=== PATIENT | female | born 1975 | race Caucasian/White ===

== ENCOUNTER 2020-03-20 21:55 | Observation (INO) ==
[2020-03-20] MEDS ORDERED: SODIUM CHLORIDE 0.9% 1,000 ML IV STA (22:18)
[2020-03-20] MEDS ORDERED: ONDANSETRON 4 MG/2 ML VIAL IV ONE (22:38)
[2020-03-20] MEDS ORDERED: MORPHINE 4 MG/1 ML VIAL IV STA (22:38)
[2020-03-20 22:41] LABS: Basophils % 0.3 % (0.0-0.8); Eosinophils # 0.1 10*3/uL (0.0-0.87); Eosinophils % 0.5 % (0.00-10.9); Hematocrit 43.1 VOL% (35.7-47.0); Immature Granulocytes % 0.6 %; Immature Granulocytes Absolute 0.06 #; Lymphocytes # 0.8 10*3/uL (1.4-4.0); Lymphocytes % 8.6 % (21.3-54.2); Mean Corpuscular HGB Conc 32.5 GM/DL (32-36); Mean Corpuscular Volume 92.7 FL (87-102); Monocytes % 2.9 % (1.7-12.7); Neutrophils % 87.1 % (38.7-73.9); Platelet Count 174 T/CUMM (130-400); Red Blood Count 4.65 MC/CUMM (3.8-5.5); Red Cell Distribution Width 12.3 % (9.3-17.3); White Blood Count 9.6 T/CUMM (4-12)
[2020-03-20 22:59] LABS: ABG Base Excess -4.5 MMOL/L (-2.5-2.5); ABG HCO3 20.7 MMOL/L (20-26); ABG Oxygen Saturation 96.9 % (95-100); ABG PCO2 28.4 MM HG (35-48); ABG PH 7.424 (7.35-7.45); ABG PO2 81.3 MM HG (80-95); ABG TCO2 16.2 MMOL/L (23-27)
[2020-03-20 23:02] LABS: Albumin 3.1 G/DL (3.4-5.0); Bilirubin,Total 0.6 MG/DL (0.2-1.0); Calcium 8.3 MG/DL (8.5-10.1); Osmolality,Calculated 289.8 MOS/KG (273-304); Total Protein 7.5 G/DL (6.4-8.3)
[2020-03-20 23:10] LABS: Bacteria,Urine Few /HPF (Few); Bilirubin,Urine Negative (Negative); Blood, Urine Small mg/dL (Negative); Glucose,Urine (UA) >=500 mg/dL (Negative); Ketones,Urine Negative (Negative); Nitrite,Urine Positive (Negative); Protein,Urine Negative; RBC,Urine 1 /HPF (0-4); Squamous Epithelial Cell,Urine Occasional /HPF (0-10); Urine Appearance Slightly Hazy (Clear); Urine Color Yellow (Yellow); Urine Specific Gravity 1.025 (1.001-1.035); Urine Urobilinogen < 2.0 EU/DL (0.2-1.0); WBC,Urine 8 /HPF (0-6)
[2020-03-21] MEDS ORDERED: MORPHINE 4 MG/1 ML VIAL IV PRN (00:43)
[2020-03-21] MEDS ORDERED: DEXTROSE 50% 25 GM/50 ML VIAL IV PRN (00:43)
[2020-03-21] MEDS ORDERED: hydrALAZINE 20 MG/1 ML VIAL IV PRN (00:43)
[2020-03-21] MEDS ORDERED: GLUCAGON 1 MG VIAL IM PRN (00:43)
[2020-03-21] MEDS ORDERED: cefTRIAXone 1,000 MG in SYRINGE 1 EACH IV SCH (01:00)
[2020-03-21] MEDS: ACETAMINOPHEN 325 MG TABLET PO PRN ×4 (01:47→21:37)
[2020-03-21] MEDS: SODIUM CHLORIDE 0.9% 1,000 ML IV SCH ×3 (02:25→20:44)
[2020-03-21] MEDS: INSULIN REGULAR 100 UNIT/ML SUBCUT SCH ×4 (07:19→20:46)
[2020-03-21 09:24] LABS: Albumin 2.6 G/DL (3.4-5.0); Bilirubin,Total 0.5 MG/DL (0.2-1.0); Calcium 7.8 MG/DL (8.5-10.1); Osmolality,Calculated 285.1 MOS/KG (273-304); Total Protein 6.7 G/DL (6.4-8.3)
[2020-03-21] MEDS: PRAMIPEXOLE 1 MG TABLET PO SCH (10:05)
[2020-03-21] MEDS ORDERED: ENOXAPARIN 40 MG/0.4 ML SYRINGE SUBCUT SCH (14:00)
[2020-03-21] MEDS: PIPERACILLIN/TAZOBACTAM 3,375 MG in SODIUM CHLORIDE 0.9% 100 ML IV SCH ×2 (14:21→21:37)
[2020-03-21] MEDS: GABAPENTIN 400 MG CAPSULE PO SCH ×2 (14:24→20:47)
[2020-03-21] MEDS: ONDANSETRON 4 MG/2 ML VIAL IV PRN ×2 (14:56→19:09)
[2020-03-21] MEDS ORDERED: INSULIN GLARGINE 100 UNIT/ML SUBCUT SCH (21:00)
[2020-03-22] MEDS: PIPERACILLIN/TAZOBACTAM 3,375 MG in SODIUM CHLORIDE 0.9% 100 ML IV SCH (05:36)
[2020-03-22 05:57] LABS: Basophils % 0.6 % (0.0-0.8); Eosinophils # 0.2 10*3/uL (0.0-0.87); Eosinophils % 3.3 % (0.00-10.9); Immature Granulocytes % 0.4 %; Immature Granulocytes Absolute 0.02 #; Lymphocytes # 1.8 10*3/uL (1.4-4.0); Lymphocytes % 35.8 % (21.3-54.2); Mean Corpuscular HGB Conc 32.8 GM/DL (32-36); Mean Corpuscular Volume 92.5 FL (87-102); Mean Platelet Volume 11.3 FL (9.6-12.0); Monocytes % 7.5 % (1.7-12.7); Neutrophils % 52.4 % (38.7-73.9); Platelet Count 147 T/CUMM (130-400); Red Blood Count 3.89 MC/CUMM (3.8-5.5); Red Cell Distribution Width 12.5 % (9.3-17.3)
[2020-03-22 05:59] LABS: Hemoglobin 11.8 GM/DL (12.0-16.0); White Blood Count 4.9 T/CUMM (4-12)
[2020-03-22 06:03] LABS: Calcium 7.9 MG/DL (8.5-10.1); Osmolality,Calculated 284.5 MOS/KG (273-304)
[2020-03-22 06:07] LABS: Band Neutrophils 1 % (0-10); Eosinophils 3 % (0-10); Hypochromasia Slight; Lymphocytes 28 % (20-55); Microcytosis Slight; Nucleated Red Blood Cells 1 (0-5); Platelet Estimate Normal; Segmented Neutrophils 63 % (50-85); Total Cells Counted 100
[2020-03-22 06:14] LABS: Risk Ratio 5.6; Thyroid Stimulating Hormone 1.71 uIU/ml (0.358-3.74); VLDL CHOLESTEROL 41.4 MG/DL
[2020-03-22] MEDS ORDERED: MAGNESIUM SULF RIDER 2 GM in PREMIX 1 EACH IV ONE (07:36)
[2020-03-22] MEDS ORDERED: POTASSIUM CHLORIDE 20 MEQ TABLET PO ONE (07:36)
[2020-03-22] MEDS: GABAPENTIN 400 MG CAPSULE PO SCH (08:34)
[2020-03-22] MEDS: INSULIN REGULAR 100 UNIT/ML SUBCUT SCH ×2 (10:07→12:38)
[2020-03-22] MEDS: PRAMIPEXOLE 1 MG TABLET PO SCH (11:02)
[2020-03-22 12:14] VITALS: BP 134/76
[2020-03-22] MEDS ORDERED: PRAMIPEXOLE 1 MG TABLET PO SCH (21:00)
[2020-03-24 00:05] LABS: CDT Result Negative (Negative); CDT Specimen Source STOOL
== END 2020-03-22 14:44 | disposition home or self-care (01) ==
LOC: N.ED 21:55 → N.EDINP 21:55 → N.3E 03-21 01:59 → N.4E 03-21 15:52
PROVIDERS: ADMIT Family Medicine; ATTEND Family Medicine

== ENCOUNTER 2020-03-25 21:15 | Observation (INO) ==
[2020-03-25 21:41] LABS: Basophils % 0.5 % (0.0-0.8); Eosinophils # 0.1 10*3/uL (0.0-0.87); Eosinophils % 1.2 % (0.00-10.9); Hematocrit 37.9 VOL% (35.7-47.0); Hemoglobin 12.6 GM/DL (12.0-16.0); Immature Granulocytes % 0.2 %; Immature Granulocytes Absolute 0.02 #; Lymphocytes # 2.5 10*3/uL (1.4-4.0); Lymphocytes % 30.7 % (21.3-54.2); Mean Corpuscular HGB Conc 33.2 GM/DL (32-36); Mean Corpuscular Volume 90.5 FL (87-102); Mean Platelet Volume 11.2 FL (9.6-12.0); Monocytes % 4.2 % (1.7-12.7); Neutrophils % 63.2 % (38.7-73.9); Platelet Count 197 T/CUMM (130-400); Red Blood Count 4.19 MC/CUMM (3.8-5.5); Red Cell Distribution Width 12.3 % (9.3-17.3); White Blood Count 8.1 T/CUMM (4-12)
[2020-03-25 21:58] LABS: PT Patient Result 10.6 SECS (9.8-11.9); Partial Thromboplastin Time 27.3 SECS (23.9-33.8)
[2020-03-25 22:01] LABS: Alanine Aminotransferase 20 U/L (13-56); Albumin 3.2 G/DL (3.4-5.0); Alkaline Phosphatase 101 U/L (45-117); Aspartate Amino Transferase 8 U/L (0-37); Bilirubin,Total < 0.39 MG/DL (0.2-1.0); Blood Urea Nitrogen 22 MG/DL (7-18); Calcium 8.9 MG/DL (8.5-10.1); Estimated Glom Filtration Rate 49 ML/MIN; Osmolality,Calculated 295.5 MOS/KG (273-304); Total Protein 7.1 G/DL (6.4-8.3)
[2020-03-25] MEDS ORDERED: ONDANSETRON 4 MG/2 ML VIAL IV ONE (22:04)
[2020-03-25] MEDS ORDERED: SODIUM CHLORIDE 0.9% 1,000 ML IV STA (22:04)
[2020-03-25 22:27] LABS: Glucose 629 MG/DL (74-106)
[2020-03-25] MEDS ORDERED: INSULIN REGULAR 100 UNIT/ML IV STA (22:29)
[2020-03-25 22:55] LABS: ABG HCO3 22.7 MMOL/L (20-26); ABG Oxygen Saturation 98.1 % (95-100); ABG PCO2 36.4 MM HG (35-48); ABG PH 7.396 (7.35-7.45); ABG TCO2 19.6 MMOL/L (23-27)
[2020-03-25 22:56] LABS: Allen Test Positive; Pt O2 Delivery Device Room Air
[2020-03-25 23:00] LABS: Anisocytosis 1+; Eosinophils 3 % (0-10); Hypochromasia 1+; Lymphocytes 25 % (20-55); Platelet Estimate Normal; Segmented Neutrophils 67 % (50-85); Total Cells Counted 100
[2020-03-26 00:04] LABS: Bilirubin,Urine Negative (Negative); Blood, Urine Negative (Negative); Glucose,Urine (UA) >=500 mg/dL (Negative); Ketones,Urine Negative (Negative); Mucus,Urine Occasional /LPF (Occasional); Nitrite,Urine Negative (Negative); Protein,Urine Negative; RBC,Urine 1 /HPF (0-4); Squamous Epithelial Cell,Urine Occasional /HPF (0-10); Urine Appearance CLEAR (Clear); Urine Color Colorless (Yellow); Urine Specific Gravity 1.016 (1.001-1.035); Urine Urobilinogen < 2.0 EU/DL (0.2-1.0); WBC,Urine <1 /HPF (0-6)
[2020-03-26] MEDS ORDERED: ONDANSETRON ODT 4 MG TABLET PO ONE (00:16)
[2020-03-26] MEDS ORDERED: HYDROmorphone 2 MG/1 ML VIAL IV STA (00:45)
[2020-03-26] MEDS ORDERED: ONDANSETRON 4 MG/2 ML VIAL IV STA (00:45)
[2020-03-26] MEDS ORDERED: DEXTROSE 50% 25 GM/50 ML VIAL IV PRN (01:57)
[2020-03-26] MEDS ORDERED: ACETAMINOPHEN 325 MG TABLET PO PRN (01:57)
[2020-03-26] MEDS ORDERED: MORPHINE 4 MG/1 ML VIAL IV PRN (01:57)
[2020-03-26] MEDS ORDERED: GLUCAGON 1 MG VIAL IM PRN (01:57)
[2020-03-26] MEDS ORDERED: MAGNESIUM SULF RIDER 4 GM in PREMIX 1 EACH IV PRN (02:02)
[2020-03-26] MEDS ORDERED: MAGNESIUM SULF RIDER 2 GM in PREMIX 1 EACH IV PRN (02:02)
[2020-03-26] MEDS: ONDANSETRON 4 MG/2 ML VIAL IV PRN ×3 (03:17→21:51)
[2020-03-26] MEDS: SODIUM CHLORIDE 0.9% 1,000 ML IV SCH ×5 (03:17→21:58)
[2020-03-26] MEDS ORDERED: INFLUENZA VIRUS VACCINE 0.5 ML SYRINGE IM ONE (04:06)
[2020-03-26] MEDS: metroNIDAZOLE 500 MG TABLET PO SCH ×3 (05:22→21:00)
[2020-03-26 06:15] LABS: Basophils % 0.5 % (0.0-0.8); Eosinophils # 0.1 10*3/uL (0.0-0.87); Eosinophils % 1.6 % (0.00-10.9); Hematocrit 38.3 VOL% (35.7-47.0); Hemoglobin 12.6 GM/DL (12.0-16.0); Immature Granulocytes % 0.3 %; Immature Granulocytes Absolute 0.02 #; Lymphocytes % 39.1 % (21.3-54.2); Mean Corpuscular HGB Conc 32.9 GM/DL (32-36); Mean Platelet Volume 11.4 FL (9.6-12.0); Monocytes % 5.6 % (1.7-12.7); Neutrophils % 52.9 % (38.7-73.9); Platelet Count 197 T/CUMM (130-400); Red Blood Count 4.21 MC/CUMM (3.8-5.5); Red Cell Distribution Width 12.3 % (9.3-17.3); White Blood Count 7.7 T/CUMM (4-12)
[2020-03-26] MEDS: ENOXAPARIN 40 MG/0.4 ML SYRINGE SUBCUT SCH ×2 (08:18→09:24)
[2020-03-26] MEDS: INSULIN LISPRO 100 UNIT/ML SUBCUT SCH ×7 (08:20→20:40)
[2020-03-26] MEDS ORDERED: PRAMIPEXOLE 1.5 MG PO SCH (09:00)
[2020-03-26] MEDS: GABAPENTIN 400 MG CAPSULE PO SCH ×3 (09:47→20:40)
[2020-03-26] MEDS ORDERED: INSULIN GLARGINE 100 UNIT/ML SUBCUT SCH (21:00)
[2020-03-27] MEDS: SODIUM CHLORIDE 0.9% 1,000 ML IV SCH ×2 (02:54→07:15)
[2020-03-27 05:00] LABS: Basophils % 0.5 % (0.0-0.8); Eosinophils # 0.1 10*3/uL (0.0-0.87); Eosinophils % 1.4 % (0.00-10.9); Hematocrit 34.5 VOL% (35.7-47.0); Hemoglobin 11.5 GM/DL (12.0-16.0); Immature Granulocytes % 0.5 %; Immature Granulocytes Absolute 0.04 #; Lymphocytes # 2.5 10*3/uL (1.4-4.0); Lymphocytes % 28.2 % (21.3-54.2); Mean Corpuscular HGB Conc 33.3 GM/DL (32-36); Mean Corpuscular Volume 92.2 FL (87-102); Monocytes % 4.1 % (1.7-12.7); Neutrophils % 65.3 % (38.7-73.9); Platelet Count 185 T/CUMM (130-400); Red Blood Count 3.74 MC/CUMM (3.8-5.5); Red Cell Distribution Width 12.3 % (9.3-17.3); White Blood Count 8.7 T/CUMM (4-12)
[2020-03-27 05:18] LABS: Osmolality,Calculated 287.4 MOS/KG (273-304)
[2020-03-27] MEDS: metroNIDAZOLE 500 MG TABLET PO SCH (05:19)
[2020-03-27] MEDS: ONDANSETRON 4 MG/2 ML VIAL IV PRN (05:19)
[2020-03-27] MEDS: GABAPENTIN 400 MG CAPSULE PO SCH (10:17)
[2020-03-27] MEDS: INSULIN LISPRO 100 UNIT/ML SUBCUT SCH ×2 (10:18)
[2020-03-27 10:49] VITALS: BP 151/77
[2020-03-27] MEDS: ENOXAPARIN 40 MG/0.4 ML SYRINGE SUBCUT SCH (11:01)
== END 2020-03-27 11:22 | disposition home or self-care (01) ==
LOC: N.EDINP 21:15 → N.ED 21:15 → SUATTDRO 03-26 01:40 → N.3E 03-26 02:33
PROVIDERS: ADMIT Family Medicine; ATTEND Hospitalist